=== PATIENT | female | born 1965 | race Caucasian/White ===

== ENCOUNTER 2024-06-13 06:48 | Day surgery (SDC) | payer OTHER ==
--- NOTE | 2024-06-12 13:47 | RAD REPORT ---
Procedure: Chest Pa And Lat (2 Views) HISTORY: Preop for back mass surgery COMPARISON: none FINDINGS: The lungs appear clear of acute infiltrate. No significant pleural effusion noted. The heart is normal size. IMPRESSION: No acute abnormality is displayed.
[2024-06-12 14:09] LABS: Anion Gap 6.2 mEq/L (5.0-15.0); Potassium 4.2 mEq/L (3.5-5.1)
[2024-06-12 14:19] LABS: Absolute Basophils 0.1 K/uL (0-0.5); Absolute Eosinophils 0.2 K/uL (0-0.5); Absolute Lymphocytes (CBC) 1.8 K/uL (0.7-4.9); Absolute Monocytes 0.5 K/uL (0.1-1.3); Basophils % 1.2 % (0-1.3); Eosinophils % 2.4 % (0-4.4); Hematocrit 41.8 % (36.0-45.0); Hemoglobin 14.1 g/dL (12.0-15.0); Lymphocytes % 27.6 % (15.3-44.8); MCH 31.7 pg (27.0-35.0); MCHC 33.6 g/dL (32.0-36.0); MCV 94.1 fL (80-100); MPV 8.9 fL (7.6-11.3); Monocytes % 8.1 % (3.3-12.3); Neutrophils % 60.7 % (41.7-73.7); Nucleated Red Blood Cells % 0.1 % (0-0); Platelets 234 thou/uL (152-406); RBC Red Blood Cell Count 4.44 M/uL (3.86-4.86); Red Cell Distribution Width 15.9 % (12.1-15.2)
[2024-06-13] MEDS ORDERED: FENTANYL CITR 100 MCG/2 ML ONE (07:23)
[2024-06-13] MEDS ORDERED: dexAMETHasone 10 MG/ML VIAL ONE (07:23)
[2024-06-13] MEDS ORDERED: propofoL 200 MG/20 ML VIAL IV ONE (07:23)
[2024-06-13] MEDS ORDERED: KETOROLAC 30 MG/ML INJ ONE (07:23)
[2024-06-13] MEDS ORDERED: LIDOCAINE 2% MPF 5 ML VIAL ONE (07:23)
[2024-06-13] MEDS ORDERED: MIDAZOLAM HCL 2 MG/2 ML INJ ONE (07:23)
[2024-06-13] MEDS ORDERED: ONDANSETRON 4 MG/2 ML VIAL ONE (07:23)
[2024-06-13] MEDS: NA CHLORIDE 0.9% 1,000 ML ONE (07:25)
[2024-06-13] MEDS: CEFAZOLIN SODIUM 1 GM/VIAL ONE (07:55)
--- NOTE | 2024-06-13 08:57 | P.BOP ---
Preoperative diagnosis: right upper back hanger infected subQ mass Postoperative diagnosis: same Primary procedure: Excisional biopsy of R upper back hanger infected subQ mass [id number] Estimated blood loss: <10cc Specimen: mass, pus culture Findings: abscess, inflammatory mass Anesthesia: General Complications: None Drain(s): Other (wet to dry) Transferred to: Recovery Room Condition: Good
[2024-06-13] MEDS: HYDROMORPHONE HCL 1 MG/ML INJ ONE (09:22)
[2024-06-13] MEDS: INSULIN REGULAR (HUMAN) 100 UNIT/ML ONE (09:38)
--- NOTE | 2024-06-13 11:14 | OP ---
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 Procedure: Excisional biopsy of right upper back hoe operator subcutaneous mass 5 x 3 x 2 cm. Estimated Blood Loss: Less than 10 cc. Specimen: Mass and pus culture. Findings: Abscess with inflammatory mass. Anesthesia: General plus local. Packing: Wet-to-dry. Indication: This is a case of a 58-year-old patient who came to us with infected mass, still drainin g purulent discharge. Benefits, alternatives, and risks of excisional biopsy of infected mass with d rainage of an abscess fully explained, which include, but not limited to, infection, bleeding, damage to adjacent structures, anesthesia complication, recurrence, MA, and even . She also understan ds this may not relieve any symptoms. She might need more than one surgical intervention. She will require wound care. She signed a consent. Description Of Procedure: The patient was brought to the operating room, placed in supine position. Anesthesia was induced without complication. The patient was placed in lateral decubitus position w ith proper protection. Back area was prepped and draped in sterile fashion. This area was previousl y marked by me and the patient in the holding room. So, once we have that area and a time-out was ca lled and an injection was done, we proceeded to make a wedge incision. We noticed it is an inflammat ory mass. There is an abscess underneath with loculations that were explored. Area was completely i rrigated. Hemostasis was obtained. Then, we proceeded to pack the area with wet-to-dry dressing. P atient tolerated the procedure well. Patient sent to Recovery in stable condition. MARQUEZ/GARIMA Voice ID: [id number] Report ID: [id number]
--- NOTE | 2024-06-13 11:16 | DS ---
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 Procedure: Excisional biopsy of right upper chargeback analyst subcutaneous mass. Condition: Stable. Disposition: Home. Discharge Instructions: Follow up this Tuesday at [facility]. I w ill be there taking care of her. She is going to leave the dressings intact until then. Continue wi th the p.o. antibiotics and pain medication previously prescribed. MARQUEZ/GARIMA Voice ID: [id number] Report ID: [id number]
--- NOTE | 2024-06-14 11:57 | EKG ---
Test Date: 2024-06-12 Test Time: 13:46:59 Cistern Room Working Supervisor: JEREMI MEASUREMENT RESULTS: Intervals: Rate: 63 MN: 188 QRSD: 92 QT: 448 QTc: 458 [place]: P: 56 MN: 188 QRS: 52 T: 98 INTERPRETIVE STATEMENTS: Normal sinus rhythm Low voltage QRS ST & T wave abnormality, consider lateral ischemia Abnormal ECG No previous ECG available for comparison Electronically Signed On 06-14-24 11:55:24 DRIER TENDER by Adan Nayak
[2024-06-15 01:20] VITALS: BP 138/66; TEMP 97.1; O2SAT 100
== END 2024-06-13 10:30 | disposition home or self-care (01) ==
LOC: OR 06:48
PROVIDERS: ATTEND Surgery
PROC: 0JB70ZZ Excision of Back Subcutaneous Tissue and Fascia, Open Approach (ICD-10-PCS; principal; 2024-06-13 08:15)
DX: L72.0 Epidermal cyst (principal); L08.9 Local infection of the skin and subcutaneous tissue, unspecified
CPT/HCPCS: 36415; 71046; 80048; 82947; 85025; 87070; 87075; 87205; 88304; 93005; J0690; J1100; J1171; J2003; J2250; J2405; J2704; J3010; J7030